=== PATIENT | female | born 1980 | race Caucasian/White ===

== ENCOUNTER 2018-05-26 16:46 | Emergency (ER) | payer OTHER | END 2018-05-26 18:08 | disposition home or self-care (01) | LOC: FTE 16:46 | DX: O21.9 Vomiting of pregnancy, unspecified (principal); O99.89 Other specified diseases and conditions complicating pregnancy, childbirth and the puerperium; R19.7 Diarrhea, unspecified; Z3A.17 17 weeks gestation of pregnancy | CPT/HCPCS: 99282; Z7502 ==

== ENCOUNTER 2018-08-12 15:08 | Emergency (ER) | payer OTHER | END 2018-08-12 18:20 | disposition home or self-care (01) | LOC: E/R 15:08 | DX: O9A.213 Injury, poisoning and certain other consequences of external causes complicating pregnancy, third trimester (principal); S80.02XA Contusion of left knee, initial encounter; M25.062 Hemarthrosis, left knee; W18.39XA Other fall on same level, initial encounter; Y92.9 Unspecified place or not applicable; Z3A.33 33 weeks gestation of pregnancy | CPT/HCPCS: 73562; 93971; 99284-25 ==